=== PATIENT | male | born 1950 | race Hispanic/Latino ===

== ENCOUNTER 2020-07-15 10:17 | Day surgery (SDC) | payer MEDICARE ==
[2020-07-15] MEDS ORDERED: SODIUM CHLORIDE IRRI 1000 ML 1,000 ML, .VANCOMYCIN VIAL 1,000 MG IR NR (11:00)
[2020-07-15] MEDS ORDERED: ceFAZolin/Water 2 GM/20 ML 2 GM/20 ML SYRINGE IV NR (11:01)
[2020-07-15] MEDS ORDERED: SODIUM CHLORIDE 0.9% 1000 ML 1,000 ML ONE (11:09)
[2020-07-15 11:21] LABS: Basophils # (Auto) 0.1 K/mm3 (0.0-0.1); Basophils % (Auto) 1.5 % (0.0-1.8); Eosinophils # (Auto) 0.5 K/mm3 (0.0-0.4); Hematocrit 42.6 % (35.5-45.6); Hemoglobin 14.1 gm/dl (11.8-15.2); Lymphocytes # (Auto) 1.3 K/mm3 (1.2-5.4); Lymphocytes % (Auto) 19.5 % (13.4-35.0); Mean Corpuscular HGB Conc 33 % (32-34); Mean Corpuscular Volume 85 fl (84-94); Monocytes # (Auto) 0.8 K/mm3 (0.0-0.8); Monocytes % (Auto) 12.4 % (0.0-7.3); Platelet Count 126 K/mm3 (140-440); Red Cell Distribution Width 16.8 % (13.2-15.2)
[2020-07-15 11:32] LABS: INR 1.25 (0.87-1.13)
[2020-07-15 11:33] LABS: Partial Thromboplastin Time 32.6 Sec. (24.2-36.6)
[2020-07-15 11:47] LABS: BUN/Creatinine Ratio 24; Blood Urea Nitrogen 22 mg/dL (9-20); Hemolysis Index 12
--- NOTE | 2020-07-15 11:50 | Anesthesia Consultation ---
Anesthesia Consult and Med Hx Date of service: 07/15/20 - Airway Anesthetic Teeth Evaluation: Dentures (upper), Edentulous (lower) ROM Head & Neck: Adequate Mental/Hyoid Distance: Inadequate Mallampati Class: Class III Intubation Access Assessment: Possibly Difficult - Pulmonary Exam CTA: Yes - Cardiac Exam Cardiac Exam: No Murmur - Pre-Operative Health Status ASA Pre-Surgery Classification: ASA3 Proposed Anesthetic Plan: MAC - Pulmonary Hx Smoking: Yes (quit 25yrs ago) Hx Respiratory Symptoms: No Hx Sleep Apnea: Yes (compliant with CPAP) - Cardiovascular System Hx Hypertension: Yes Hx Heart Attack/AMI: No (nonischemic cardiomyopathy EF 40-45%) Hx Percutaneous Transluminal Coronary Angioplasty (PTCA): No Hx Cardia Arrhythmia: Yes (a-fib) Hx Pacemaker: Yes Hx Internal Defibrillator: Yes (last defib >1 month ago) - Central Nervous System CVA: No - Endocrine Hx Renal Disease: No Hx Liver Disease: No Hx Insulin Dependent Diabetes: No Hx Non-Insulin Dependent Diabetes: No Hx Thyroid Disease: No - Other Systems Hx Obesity: Yes (BMI 33)
--- NOTE | 2020-07-15 11:50 | Anesthesia Day of Surgery ---
Anesthesia Day of Surgery - Day of Surgery Patient Examined: Yes Patient H&P Reviewed: Yes Patient is NPO: Yes
[2020-07-15] MEDS ORDERED: fentaNYL 100 MCG/2 ML INJ ONE (12:10)
[2020-07-15] MEDS ORDERED: KETAMINE/STERILE WATER 50 MG/ML SYRINGE ONE (12:10)
[2020-07-15] MEDS ORDERED: ceFAZolin/Water 2 GM/20 ML 2 GM/20 ML SYRINGE IV ONE (12:36)
[2020-07-15] MEDS ORDERED: LIDOCAINE (1%) 10 MG/1 ML VIAL 20 ML MDV ONE (12:37)
[2020-07-15] MEDS ORDERED: SODIUM CHLORIDE IRRI 500 ML 500 ML IR ONE (12:37)
[2020-07-15] MEDS ORDERED: BUPIVACAINE/PF (0.5%) 5 MG/1 ML 30 ML VIAL INFILTRATI ONE (12:38)
[2020-07-15] MEDS ORDERED: .VANCOMYCIN VIAL 1,000 MG in SODIUM CHLORIDE IRRI 1000 ML 1,000 ML IRRIGATION ONE (13:20)
--- NOTE | 2020-07-15 14:27 | Post Anesthesia Evaluation ---
- Post Anesthesia Evaluation Patient Participated: Yes Airway Patent: Yes Stable Respiratory Function: Yes Nausea/Vomiting: No Temp > 96.8F: Yes Pain Manageable: Yes Adequeate Hydration: Yes Anesthesia Complications: No Block Receding Appropriately: Not Applicable Patient on Ventilator: No
[2020-07-15 15:18] VITALS: BP 135/72
== END 2020-07-15 16:00 | disposition home or self-care (01) ==
LOC: CATHLABREC 10:17
PROVIDERS: ATTEND Internal Medicine Cardiovascular Disease
DX: Z45.02 Encounter for adjustment and management of automatic implantable cardiac defibrillator (principal); I48.11 Longstanding persistent atrial fibrillation; I11.0 Hypertensive heart disease with heart failure; I50.22 Chronic systolic (congestive) heart failure; E66.9 Obesity, unspecified; G47.33 Obstructive sleep apnea (adult) (pediatric); I42.0 Dilated cardiomyopathy; M19.90 Unspecified osteoarthritis, unspecified site; E78.2 Mixed hyperlipidemia; Z98.890 Other specified postprocedural states; Z79.899 Other long term (current) drug therapy; Z79.84 Long term (current) use of oral hypoglycemic drugs; Z87.891 Personal history of nicotine dependence; Z98.49 Cataract extraction status, unspecified eye; Z87.01 Personal history of pneumonia (recurrent); Z68.33 Body mass index [BMI] 33.0-33.9, adult
CPT/HCPCS: 33262; 36415; 80048; 85025; 85610; 85730; 93005; C1722; J0690; J2704; J3010; J3370; J3490; J7030